=== PATIENT | male | born 1995 | race Caucasian/White ===

== ENCOUNTER 2016-07-28 07:49 | Inpatient (IN) | payer MEDICAID ==
[2016-07-28] VITALS (14 sets, daily range): BP systolic 104–167; RESP 15–22; TEMP 97.6–98.4; Ht 177.8 cm; Wt 97.5 kg
[~2016-07-28] VITALS: Ht 177.8 cm; Wt 97.5 kg
[~2016-07-28 07:49] MED LIST: FENTANYL 100 MCG/2 ML AMP IV ONE; PROPOFOL 20 ML PER ML IV ONE; ROCURONIUM 50 MG VIAL IV ONE; SUCCINYLCHOLINE 20 MG/ML VL IV ONE
[2016-07-28] MEDS ORDERED: KETOROLAC 30 MG/ML VIAL ONE (08:23)
[2016-07-28] MEDS ORDERED: CEFTRIAXONE 1 GM VIAL ONE (09:24)
[2016-07-28] MEDS ORDERED: SODIUM CHLORIDE 0.9% 1,000 ML ONE (09:24)
[2016-07-28] MEDS ORDERED: CEFTRIAXONE 1 GM in SODIUM CHLORIDE 0.9% 50 ML IV ONE (10:20)
[2016-07-28] MEDS ORDERED: LACT RINGERS 1,000 ML IV SCH (11:50)
[2016-07-28] MEDS ORDERED: METOCLOPRAMIDE 10 MG/2 ML VIAL IV PUSH ONE (11:50)
[2016-07-28] MEDS ORDERED: GLYCOPYRROLATE 0.2 MG/ML VIAL IV ONE (11:50)
[2016-07-28] MEDS ORDERED: MIDAZOLAM 2 MG/2 ML INJ IV ONE (11:50)
[2016-07-28] MEDS ORDERED: LIDOCAINE 1% BUFFERED 1 ML SYR INTRADERM PRN (11:50)
[2016-07-28] MEDS ORDERED: FAMOTIDINE 20 MG INJ IV ONE (11:50)
[2016-07-28] MEDS ORDERED: ONDANSETRON 4 MG VIAL IV ONE (11:50)
[2016-07-28] MEDS ORDERED: OXYCODONE 5 MG TAB PO PRN ×2 (13:40→14:00)
[2016-07-28] MEDS ORDERED: DILAUDID 1 MG/ML AMP IV PRN ×2 (13:40→14:00)
[2016-07-28] MEDS ORDERED: ONDANSETRON 4 MG VIAL IV PRN ×2 (13:40→14:00)
[2016-07-28] MEDS ORDERED: MEPERIDINE 25 MG/ML IV PRN (14:00)
[2016-07-28] MEDS ORDERED: MORPHINE 2 MG/ML SYR IV PRN (14:00)
[2016-07-28] MEDS ORDERED: MORPHINE 4 MG/ML SYR IV PRN (14:00)
[2016-07-28] MEDS: SODIUM CHLORIDE 0.45% 1,000 ML IV SCH (15:29)
[2016-07-28] MEDS: CEFTRIAXONE 1 GM in SODIUM CHLORIDE 0.9% 50 ML IV SCH (15:29)
[2016-07-28] MEDS: OXYCODONE 5 MG TAB PO PRN (19:17)
[2016-07-28] MEDS ORDERED: SODIUM CHLORIDE 0.9% FLUSH BAG 500 ML IV PRN (19:55)
[2016-07-29] MEDS: SODIUM CHLORIDE 0.45% 1,000 ML IV SCH (03:16)
[2016-07-29 03:45] VITALS: BP_SYST 139; RESP 16; TEMP 97.6
[2016-07-29] MEDS: OXYCODONE 5 MG TAB PO PRN ×2 (03:47→08:49)
[2016-07-29 08:16] VITALS: BP_SYST 146; RESP 18; TEMP 98
[2016-07-29] MEDS: CEFTRIAXONE 1 GM in SODIUM CHLORIDE 0.9% 50 ML IV SCH (08:48)
[2016-07-29 09:15] VITALS: BP_SYST 146; RESP 18; TEMP 98
== END 2016-07-29 16:00 | disposition home or self-care (01) | DRG 690 ==
LOC: ENRESERVDT → ENRESERVTM → ER 07:49 → SURG 10:51 → EMR 13:46 → 5THW 14:48
PROVIDERS: ADMIT Urology; ATTEND Urology
PROC: 0T768DZ Dilation of Right Ureter with Intraluminal Device, Via Natural or Artificial Opening Endoscopic (ICD-10-PCS; principal; 2016-07-28 12:40)
CPT/HCPCS: 36415; 74000; 74176; 76000; 80048; 80053; 81001; 82947; 83970; 84550; 85025; 87088; 96361; 96374; 96375